=== PATIENT | male | born 1985 | race Two or more races ===

== ENCOUNTER 2024-08-29 09:40 | Inpatient (IN) | payer OTHER ==
[~2024-08-29] VITALS: Ht 172.7 cm; Wt 110.0 kg
[2024-08-29 10:30] LABS: BASOPHILS % (AUTO) 1.5 % (0.0-2.0); EOSINOPHILS % (AUTO) 0.6 % (1.0-6.0); HEMATOCRIT 45.3 % (41-53); HEMOGLOBIN 14.9 g/dL (13.5-17.5); LYMPHOCYTES # (AUTO) 2.1 K/uL (1.0-4.8); LYMPHOCYTES % (AUTO) 14.1 % (22.0-44.0); MEAN CORPUSCULAR HEMOGLOBIN 28.1 pg (26.0-34.0); MEAN CORPUSCULAR HGB CONC 32.9 G/dL (31.0-37.0); MEAN CORPUSCULAR VOLUME 85 fL (80-100); MONOCYTES # (AUTO) 1.1 K/uL (0.1-1.0); MONOCYTES % (AUTO) 7.4 % (2.0-9.0); NEUTROPHILS # (AUTO) 11.4 K/uL (1.8-7.7); NEUTROPHILS % (AUTO) 76.4 % (40.0-70.0); PLATELET COUNT (AUTO) 317 K/uL (150-450); RED BLOOD CELL COUNT(AUTO) 5.31 MIL/uL (4.50-5.90); RED CELL DISTRIBUTION WIDTH 14.4 % (11.5-14.5); WHITE BLOOD COUNT (AUTO) 14.9 K/uL (4.5-11.0)
[2024-08-29 10:42] LABS: ANION GAP 6 mmol/L (8-16); CALCIUM, TOTAL 8.9 mg/dL (8.8-10.5); CARBON DIOXIDE 31 mmol/L (22-29); CHLORIDE 103 mmol/L (98-107); GLOMERULAR FILTR. RATE CALC > 60 mL/min (>60); GLUCOSE,RANDOM 115 mg/dL (70-110); POTASSIUM 3.1 mmol/L (3.5-5.1); SODIUM SERUM 139 mmol/L (136-145); UREA NITROGEN, BLOOD 7 mg/dL (7-18)
[2024-08-29] MEDS: ACETAMINOPHEN 500 MG TABLET PO ONE (10:43)
[2024-08-29] MEDS: CloNIDine HCL 0.1 MG TABLET PO ONE (10:43)
[2024-08-29] MEDS: AmLODIPine BESYLATE 10 MG TABLET PO ONE (10:44)
[2024-08-29 10:48] LABS: ALCOHOL, URINE DRUG SCREEN NEGATIVE (NEGATIVE); AMPHET/METH SCREEN,URINE POSITIVE (NEGATIVE); BARBITURATE SCREEN, URINE NEGATIVE (NEGATIVE); BENZODIAZEPINES SCREEN,URINE NEGATIVE (NEGATIVE); CANNABINOID SCREEN,URINE POSITIVE (NEGATIVE); COCAINE SCREEN,URINE NEGATIVE (NEGATIVE); METHADONE SCREEN, URINE NEGATIVE (NEGATIVE); OPIATE SCREEN,URINE NEGATIVE (NEGATIVE); PHENCYCLIDINE SCREEN,URINE NEGATIVE (NEGATIVE)
[2024-08-29 10:48] LABS: TROPONIN I-HIGH SENSITIVITY 92 ng/L (<76)
[2024-08-29] MEDS: POTASSIUM CHLORIDE 20 MEQ ER TABLET PO ONE (11:53)
[2024-08-29] MEDS: NITROGLYCERIN 2% (1 GM=INCH) OINTMENT PACKET TP ONE (12:13)
[2024-08-29] MEDS: ASPIRIN 325 MG TABLET PO ONE (12:13)
[2024-08-29 13:20] LABS: TROPONIN I-HIGH SENSITIVITY 87 ng/L (<76)
[2024-08-29 16:01] VITALS: BP 160/106; PULSE 74; RESP 18; TEMP 97.7; O2SAT 98
[2024-08-29 16:22] VITALS: BP 153/90
[2024-08-29] MEDS ORDERED: HydrALAZINE HCL 20 MG/ML VIAL IVP PRN (16:45)
[2024-08-29 19:15] VITALS: BP 151/99; PULSE 90; RESP 18; TEMP 98.1; O2SAT 98
[2024-08-29] MEDS ORDERED: ALBUTEROL SULFATE 2.5 MG/0.5 ML NEB SOLUTION NEB PRN (19:30)
[2024-08-29] MEDS ORDERED: IPRATROPIUM BROMIDE 0.5 MG/2.5 ML NEB SOLUTION NEB PRN (19:30)
[2024-08-29] MEDS ORDERED: MAGNESIUM HYDROXIDE SUSPENSION 30 ML UDCUP PO PRN (19:30)
[2024-08-29] MEDS ORDERED: ONDANSETRON HCL 4 MG/2 ML VIAL IVP PRN (19:30)
[2024-08-29] MEDS ORDERED: BISACODYL 10 MG RECTAL RECTAL SUPPOSITORY PR PRN (19:30)
[2024-08-29] MEDS ORDERED: ZOLPIDEM TARTRATE 5 MG TABLET PO PRN (19:30)
[2024-08-29] MEDS: AmLODIPine BESYLATE 5 MG TABLET PO SCH (21:03)
[2024-08-30] MEDS: HEPARIN SODIUM,PORCINE 5,000 UNITS/ML VIAL SQ SCH (00:22)
[2024-08-30] MEDS: ACETAMINOPHEN 325 MG TABLET PO PRN (00:22)
[2024-08-30 05:00] VITALS: BP 139/93; PULSE 83; RESP 18; TEMP 97.9; O2SAT 96
[2024-08-30 07:01] LABS: BASOPHILS % (AUTO) 0.4 % (0.0-2.0); EOSINOPHILS % (AUTO) 1.2 % (1.0-6.0); HEMATOCRIT 42.9 % (41-53); HEMOGLOBIN 14.2 g/dL (13.5-17.5); LYMPHOCYTES # (AUTO) 2.2 K/uL (1.0-4.8); LYMPHOCYTES % (AUTO) 15.3 % (22.0-44.0); MEAN CORPUSCULAR HEMOGLOBIN 28.1 pg (26.0-34.0); MEAN CORPUSCULAR HGB CONC 33.1 G/dL (31.0-37.0); MEAN CORPUSCULAR VOLUME 85 fL (80-100); MONOCYTES # (AUTO) 1.4 K/uL (0.1-1.0); NEUTROPHILS # (AUTO) 10.5 K/uL (1.8-7.7); NEUTROPHILS % (AUTO) 73.1 % (40.0-70.0); PLATELET COUNT (AUTO) 285 K/uL (150-450); RED BLOOD CELL COUNT(AUTO) 5.05 MIL/uL (4.50-5.90); RED CELL DISTRIBUTION WIDTH 13.9 % (11.5-14.5); WHITE BLOOD COUNT (AUTO) 14.3 K/uL (4.5-11.0)
[2024-08-30 07:11] LABS: ALANINE AMINOTRANSFERASE 41 U/L (12-78); ALBUMIN 3.1 g/dL (3.4-5.0); ALKALINE PHOSPHATASE 125 U/L (46-116); ANION GAP 8 mmol/L (8-16); ASPARTATE AMINOTRANSFERASE 33 U/L (15-37); BILIRUBIN,TOTAL 0.9 mg/dL (0.1-1.0); CALCIUM, TOTAL 8.6 mg/dL (8.8-10.5); CARBON DIOXIDE 29 mmol/L (22-29); CHLORIDE 102 mmol/L (98-107); GLOMERULAR FILTR. RATE CALC > 60 mL/min (>60); GLUCOSE,RANDOM 94 mg/dL (70-110); POTASSIUM 3.5 mmol/L (3.5-5.1); SODIUM SERUM 139 mmol/L (136-145); TOTAL PROTEIN, SERUM 6.8 g/dL (6.4-8.2); UREA NITROGEN, BLOOD 7 mg/dL (7-18)
[2024-08-30 07:32] LABS: TROPONIN I-HIGH SENSITIVITY 44 ng/L (<76)
[2024-08-30] MEDS: PANTOPRAZOLE SODIUM 40 MG DR TABLET PO SCH (08:12)
[2024-08-30] MEDS: lisinopriL 20 MG TABLET PO SCH (08:13)
[2024-08-30 08:14] VITALS: BP 164/98; RESP 19; O2SAT 95
[2024-08-30 10:53] VITALS: BP 155/99; PULSE 89; RESP 19; TEMP 97.6; O2SAT 96
[2024-08-30] MEDS: CloNIDine HCL 0.1 MG TABLET PO ONE (12:04)
[2024-08-30 13:24] VITALS: BP 141/80; PULSE 87; O2SAT 97
[2024-08-30] MEDS ORDERED: AMLO-257 PO (13:42)
[2024-08-30] MEDS ORDERED: CLON0.1T2 PO (13:43)
[2024-08-30] MEDS ORDERED: CloNIDine HCL 0.1 MG TABLET PO SCH (21:00)
== END 2024-08-30 15:49 | DRG 282 ==
LOC: EMS 09:40 → EDH 14:10 → 6S 15:38
PROVIDERS: ADMIT Hospitalist; ATTEND Hospitalist
DX: I16.0 Hypertensive urgency (principal); I21.A1 Myocardial infarction type 2; F15.10 Other stimulant abuse, uncomplicated; R79.89 Other specified abnormal findings of blood chemistry; D72.829 Elevated white blood cell count, unspecified; E87.6 Hypokalemia; I10 Essential (primary) hypertension; Z82.49 Family history of ischemic heart disease and other diseases of the circulatory system
CPT/HCPCS: 71045; 80048; 80053; 80307; 83735; 84443; 84484; 85025; 93005; 93306; 99291; G0480; J1644; 36415-L1; 36415-TC

== ENCOUNTER 2024-11-26 18:10 | Emergency (ER) | payer OTHER ==
[~2024-11-26 18:10] MED LIST: AMLO-257 PO; CLON0.1T2 PO
== END 2024-11-26 19:52 ==
LOC: EMS 18:10
DX: I10 Essential (primary) hypertension (principal); F12.90 Cannabis use, unspecified, uncomplicated; F15.90 Other stimulant use, unspecified, uncomplicated; Z65.3 Problems related to other legal circumstances; Z79.899 Other long term (current) drug therapy
CPT/HCPCS: 93005; 99283